=== PATIENT | female | born 1995 | race Caucasian/White ===

== ENCOUNTER 2021-04-04 12:16 | Emergency (ER) | payer OTHER ==
[~2021-04-04 12:16] MED LIST: MACROBID 100 M100 MG PO; PRENATAL VITAM1 EAC3 PO
[2021-04-04 13:40] LABS: HEMOGLOBIN 15.2 gm/dl (12.3-15.3); RED BLOOD COUNT 5.06 M/UL (4.00-5.10); WHITE BLOOD COUNT 4.9 K/UL (4.5-11.0)
[2021-04-04 14:05] LABS: BUN/CREATININE RATIO 12 (0-10)
== END 2021-04-04 15:11 | disposition left against medical advice (07) ==
LOC: ER1 12:16
PROVIDERS: Nurse Practitioner
DX: Z53.21 Procedure and treatment not carried out due to patient leaving prior to being seen by health care provider (principal)
CPT/HCPCS: 80048; 81001; 85025